=== PATIENT | female | born 1990 | race African-American/Black ===

== ENCOUNTER 2017-06-09 18:59 | Emergency (ER) | payer MEDICAID ==
[2017-06-09 19:04] VITALS: BP 101/62; PULSE 99; RESP 16; TEMP 98.8; O2SAT 97
[2017-06-09] MEDS ORDERED: CETIRIZINE 10 MG TAB PO ONE (19:51)
[2017-06-09] MEDS ORDERED: AZITHROMYCIN 250 MG TAB PO ONE (21:23)
--- NOTE | 2017-06-09 21:23 | EDPHY ---
H & P Stated Complaint: rash too abx HPI/ROS: Chief complaint: Rash, possibly secondary to an antibiotic History of present illness: This is a 27-year-old female who presents to the emergency department for evaluation of a rash. She is concerned this is secondary to an antibiotic. Patient states approximately 2 weeks ago she was diagnosed with strep throat. She was started on clindamycin. She slowly developed a diffuse bumpy rash across her body. She describes it as itchy. She did stop taking the clindamycin 6 days in the treatment but symptoms persist. She denies other associated signs or symptoms including no fevers, no blisters, pustules or vesicles, no trouble breathing. Review of systems: A 10 point review systems was obtained and other than described above was negative - Personal History LMP (Females 10-55): 22-28 Days Ago Current Tetanus/Diphtheria Vaccine: Yes Current Tetanus Diphtheria and Acellular Pertussis (TDAP): Yes - Medical/Surgical History Hx Asthma: No Hx Chronic Respiratory Disease: No Hx Diabetes: No Hx Cardiac Disease: No Hx Renal Disease: No Hx Cirrhosis: No Hx Alcoholism: No Hx HIV/AIDS: No Hx Splenectomy or Spleen Trauma: No - Social History Smoking Status: Current every day smoker - Physical Exam Exam: General Appearance: Alert and no distress. Eyes: Pupils equal and round no injection. ENT: Tympanic membranes, external auditory canals, external easr and surrounding soft tissue including over the mastoids are unremarkable. Nasopharynx is not injected. There is no rhinorrhea. Oropharynx is injected. There is no edema. There is no exudate. There is no asymmetry. The uvula is midline. No elevation of the tongue. There is no hoarseness, no drooling, no trismus, no stridor. Respiratory: Chest is non tender, lungs are clear to auscultation. Cardiac: regular rate and rhythm Musculoskeletal: Neck is supple and non tender. Extremities have full range of motion and are non tender. Skin: Diffuse macular papular rash. Neurological: Alert and oriented x4. No meningismus. Constitutional: Initial Vital Signs Temperature (C) 37.1 C 06/09/17 19:02 Heart Rate 99 06/09/17 19:02 Respiratory Rate 16 06/09/17 19:02 Blood Pressure 101/62 06/09/17 19:02 O2 Sat (%) 97 06/09/17 19:02 O2 Delivery Mode Room Air Allergies/Adverse Reactions: clindamycin Allergy (Verified 06/09/17 19:04) metronidazole Allergy (Verified 06/09/17 19:04) naproxen Allergy (Verified 06/09/17 19:04) Penicillins Allergy (Verified 06/09/17 19:04) tramadol Allergy (Verified 06/09/17 19:04) Home Medications: Medication Instructions Recorded Azithromycin 250 mg PO DAILY 4 Days 06/09/17 Cetirizine HCl [Zyrtec] 10 mg PO DAILY #30 tablet 06/09/17 Medical Decision Making ED Course/Re-evaluation: Patient is seen under the supervision of my secondary supervising physician Dr. Bruce York. Patient presents to the emergency department for a rash. She is concerned this is from taking clindamycin that she was placed on for strep throat 2 weeks ago. She still has a sore throat. She has a macular papular rash. I did perform a mono screen which is negative. I will place her on azithromycin to ensure full treatment of her strep pharyngitis. Symptomatic care for the rash is discussed. She is to follow up with a primary care doctor for recheck. Return precautions are given. Patient voiced understanding and agreement with plan. Differential Diagnosis: Included but not limited to allergic reaction, contact dermatitis, scarlet fever , unlikely Ramesh Alex syndrome or TENS - Data Points Laboratory Results: 06/09/17 20:20 Monoscreen NEGATIVE (NEGATIVE) Medications Given: Discontinued Medications Azithromycin (Zithromax) 500 mg PO EDNOW ONE PRN Reason: Protocol Stop: 06/09/17 21:24 Last Admin: 06/09/17 21:38 Dose: 500 mg Cetirizine HCl (Zyrtec) 10 mg PO EDNOW ONE Stop: 06/09/17 19:52 Last Admin: 06/09/17 20:11 Dose: 10 mg Departure - Departure Disposition: Home, Routine, Self-Care Clinical Impression: Rash Pharyngitis Qualifiers: Pharyngitis/tonsillitis etiology: streptococcus Qualified Code(s): J02.0 - Streptococcal pharyngitis Condition: Good Instructions: Pharyngitis (ED), Acute Rash (ED) Additional Instructions: Follow-up with the primary care doctor for recheck Use an [id number] antihistamine such as Benadryl, Claritin or Zyrtec Take antibiotics as prescribed until finished even feeling better If symptoms worsen or new symptoms develop return to the emergency room for recheck Referrals: NONE *PRIMARY CARE P,. [Primary Care Provider] - As per Instructions [facility],. [Clinic] - As per Instructions Robert Guzman MD [Medical Doctor] - As per Instructions Prescriptions: Azithromycin 250 mg PO DAILY 4 Days Cetirizine HCl [Zyrtec] 10 mg PO DAILY #30 tablet
== END 2017-06-09 21:47 | disposition home or self-care (01) ==
DX: R21 Rash and other nonspecific skin eruption (principal); J02.0 Streptococcal pharyngitis; F17.200 Nicotine dependence, unspecified, uncomplicated

== ENCOUNTER 2017-06-14 21:28 | Emergency (ER) | payer MEDICAID ==
[2017-06-14 21:43] VITALS: O2SAT 96
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
[2017-06-14 23:23] VITALS: BP 114/86; PULSE 80; RESP 16; TEMP 97.9
== END 2017-06-14 23:22 | disposition home or self-care (01) ==
DX: R21 Rash and other nonspecific skin eruption (principal); F17.200 Nicotine dependence, unspecified, uncomplicated